=== PATIENT | female | born 1955 | race Caucasian/White ===

== ENCOUNTER 2018-03-27 21:24 | Emergency (ER) | payer OTHER ==
--- NOTE | 2018-03-27 22:10 | ED Physician Documentation ---
PD HPI SKIN - Stated complaint Stated Complaint: RASH - Chief complaint Chief Complaint: Wound - History obtained from History obtained from: Patient - History of Present Illness Timing - onset: Today Timing - duration: Days (1) Timing - details: Gradual onset Pain level max: 0 Pain level now: 0 Quality / character: Itchy Improved by: Other (nothing) Worsened by (comment): COMMENT (nothing) Associated symptoms: No: Fever, Myalgias, Joint pain, Headache, Facial swelling , Dyspnea, Abd pain, N/V/D, Urinary sx Similar symptoms before: Diagnosis (scabies) Recently seen: Not recently seen - Additional information Additional information: Patient is a 63-year-old female who presents to the emergency department with a rash to the right upper arm. She also has it on her left arm and left foot. States it is similar to her scabies in the past. States that she has required oral medications for her Scabies in addition to permetherin. Nothing makes it better or worsen. Review of Systems Constitutional: denies: Fever, Chills GI: denies: Vomiting Neurologic: denies: Headache PD PAST MEDICAL HISTORY - Past Medical History Past Medical History: No - Past Surgical History Past Surgical History: Yes /[employer]ACHINE: Tubal ligation - Present Medications Home Medications: Ambulatory Orders Medication Instructions Recorded Confirmed Ivermectin 21 mg PO ONCE #7 tablet 03/27/18 Permethrin [Elimite] 30 gm TP ONCE #2 bottle 03/27/18 - Allergies Allergies/Adverse Reactions: Allergies Allergy/AdvReac Type Severity Reaction Status Date / Time codeine Allergy Anxiety Verified 03/27/18 21:37 - Social History Does the pt smoke?: No Smoking Status: Never smoker Does the pt drink ETOH?: No Does the pt have substance abuse?: No - Immunizations Immunizations are current?: Yes - POLST Patient has POLST: No PD ED PE NORMAL - Vitals Vital signs reviewed: Yes - General General: Alert and oriented X 3 - HEENT HEENT: Moist mucous membranes - Derm Derm: Warm and dry - Extremities Extremities: Other (small pathcy rash to the R upper arms with what appear to be mite tracks. Similar on L foot and L arm. ) - Neuro Neuro: Alert and oriented X 3 - Psych Psych: Normal mood, Normal affect Results - Vitals Vitals: Vital Signs - 24 hr 03/27/18 03/27/18 21:27 22:20 Temperature 36.5 C Heart Rate 88 83 Respiratory 18 16 Rate Blood Pressure 147/95 H 139/76 H O2 Saturation 98 99 Oxygen O2 Source Room air PD MEDICAL DECISION MAKING - ED course Complexity details: considered differential, d/w patient ED course: Patient is a 63-year-old female with what appears to be scabies. Will place on permethrin and ivermectin. She states permethrin alone has not worked in the past. Will have her follow-up with her doctor for further evaluation and care. Patient counseled regarding signs and symptoms for which I believe and urgent re-evaluation would be necessary. Patient with good understanding of and agreement to plan and is comfortable going home at this time This document was made in part using voice recognition software. While efforts are made to proofread this document, sound alike and grammatical errors may occur. - Sepsis Event Vital Signs: Vital Signs - 24 hr 03/27/18 03/27/18 21:27 22:20 Temperature 36.5 C Heart Rate 88 83 Respiratory 18 16 Rate Blood Pressure 147/95 H 139/76 H O2 Saturation 98 99 Oxygen O2 Source Room air Departure - Departure Disposition: 01 Home, Self Care Clinical Impression: Scabies Condition: Good Instructions: ED Scabies Follow-Up: Ebony Strauss MD [Primary Care Provider] - As Needed Prescriptions: Ivermectin 21 mg PO ONCE #7 tablet Permethrin [Elimite] 30 gm TP ONCE #2 bottle Comments: Take the medications as prescribed. Follow up with your doctor for further care. Discharge Date/Time: 03/27/18 22:20
[2018-03-27 22:20] VITALS: BP 139/76
== END 2018-03-27 22:20 | disposition home or self-care (01) ==
LOC: ED 21:24
DX: B86 Scabies (principal)
CPT/HCPCS: 99283